=== PATIENT | female | born 2000 | race African-American/Black ===

== ENCOUNTER 2021-07-10 14:58 | Outpatient (CLI) | payer OTHER ==
[2021-07-10 16:04] LABS: BHCG - Serum Negative (NEGATIVE); Pregs Control Background? CLEAR/WHITE (CLR/WHITE); Pregs Control Bar Appear? YES (CONTROL BAR)
[2021-07-10 16:24] LABS: Hemoglobin 11.9 g/dL (12.0-15.5); Mean Corpuscular Hemoglobin 24.2 pg (27.0-33.0); Mean Platelet Volume 10.5 fl (7.4-10.4); Platelet Count 246 10x3/uL (150-450); RBC Distribution Width 14.6 % (11.5-14.5); Red Blood Cell (RBC) Count 4.92 10x6/uL (3.90-5.03); White Blood Cell (WBC) Count 5.3 10x3/uL (3.5-10.5)
[2021-07-11 11:56] LABS: SARS-CoV-2 PCR by NAA Not Detected (NotDetected)
== END 2021-07-10 14:59 | disposition home or self-care (01) ==
LOC: CSHLAB 14:58
PROVIDERS: ATTEND Obstetrics & Gynecology
DX: Z01.812 Encounter for preprocedural laboratory examination (principal); Z20.822 Contact with and (suspected) exposure to COVID-19
CPT/HCPCS: 84703; 85027; 86850; 86900; 86901; U0003; U0005

== ENCOUNTER 2021-07-15 07:15 | Day surgery (SDC) | payer OTHER ==
[2021-07-10 12:46] VITALS: BMI 32.0
[2021-07-10 16:04] LABS: BHCG - Serum Negative (NEGATIVE); Pregs Control Background? CLEAR/WHITE (CLR/WHITE); Pregs Control Bar Appear? YES (CONTROL BAR)
[2021-07-10 16:24] LABS: Hemoglobin 11.9 g/dL (12.0-15.5); Mean Corpuscular Hemoglobin 24.2 pg (27.0-33.0); Mean Platelet Volume 10.5 fl (7.4-10.4); Platelet Count 246 10x3/uL (150-450); RBC Distribution Width 14.6 % (11.5-14.5); Red Blood Cell (RBC) Count 4.92 10x6/uL (3.90-5.03); White Blood Cell (WBC) Count 5.3 10x3/uL (3.5-10.5)
[2021-07-11 11:56] LABS: SARS-CoV-2 PCR by NAA Not Detected (NotDetected)
[2021-07-15] MEDS ORDERED: CeleCOXIB 100 MG CAP ONE (08:16)
[2021-07-15] MEDS ORDERED: Gabapentin 300 MG CAP ONE (08:16)
[2021-07-15] MEDS ORDERED: Lidocaine 1% MPF 2 ML VIAL ONE (08:16)
[2021-07-15] MEDS ORDERED: Famotidine/PF 20 mg/2ml Vial ONE (08:16)
[2021-07-15] MEDS ORDERED: Rocuronium Bromide 10 MG/ML (10ML VIAL) ONE (09:40)
[2021-07-15] MEDS ORDERED: Lidocaine 1% PF 5 ML VIAL ONE (09:40)
[2021-07-15] MEDS ORDERED: Midazolam HCl 2 mg/2 ml Vial ONE (09:46)
[2021-07-15] MEDS ORDERED: EPINEPHrine 1 MG/ML AMP ONE (10:14)
[2021-07-15] MEDS ORDERED: Bupivacaine PF 0.5% 30 ML VIAL ONE (10:14)
[2021-07-15] MEDS ORDERED: ceFAZolin 2 GM/Dextrose 50 ML IVPB ONE (10:20)
[2021-07-15] MEDS ORDERED: PROPOFOL 20 ML ONE (10:36)
[2021-07-15] MEDS ORDERED: Fentanyl 100 MCG/2 ML VIAL ONE ×2 (10:37→12:11)
[2021-07-15] MEDS ORDERED: PHENYLEPHRINE-NS 100 MCG/ML 10 ML SYRINGE ONE (10:48)
[2021-07-15] MEDS ORDERED: Dexamethasone 4 mg/ml Vial ONE (10:53)
[2021-07-15] MEDS ORDERED: Ondansetron PF 4 MG/2 ML Vial ONE (10:53)
[2021-07-15] MEDS ORDERED: Glycopyrrolate 0.2 MG/ML 5 ML SYRINGE ONE (11:47)
== END 2021-07-15 13:35 | disposition home or self-care (01) ==
LOC: CSHSDC 07:15
PROVIDERS: ATTEND Obstetrics & Gynecology
PROC: 8E0W8CZ Robotic Assisted Procedure of Trunk Region, Via Natural or Artificial Opening Endoscopic (ICD-10-PCS; principal; 2021-07-15)
PROC: 0UB04ZZ Excision of Right Ovary, Percutaneous Endoscopic Approach (ICD-10-PCS; principal; 2021-07-15)
DX: D27.0 Benign neoplasm of right ovary (principal); N80.3 Endometriosis of pelvic peritoneum; K91.81 Other intraoperative complications of digestive system; S36.530A Laceration of ascending [right] colon, initial encounter; Z79.1 Long term (current) use of non-steroidal anti-inflammatories (NSAID); Z20.822 Contact with and (suspected) exposure to COVID-19; Y83.8 Other surgical procedures as the cause of abnormal reaction of the patient, or of later complication, without mention of misadventure at the time of the procedure
CPT/HCPCS: 36416; 84703; 85027; 86850; 86900; 86901; 88307; J0171; J0690; J1100; J2250; J2405; J2704; J3010; S0020; S0028; U0003; U0005

== ENCOUNTER 2021-11-02 02:49 | Emergency (ER) | payer MEDICAID, SELFPAY ==
[2021-11-02] MEDS ORDERED: Ondansetron ODT 4 MG TAB ONE (03:09)
[2021-11-02] MEDS ORDERED: Ondansetron PF 4 MG/2 ML Vial ONE (03:35)
== END 2021-11-02 04:28 | disposition home or self-care (01) ==
LOC: CSHERS 02:49
DX: R11.2 Nausea with vomiting, unspecified (principal)
CPT/HCPCS: 96361; 96374; J2405; Q0162

== ENCOUNTER 2022-08-12 11:30 | Inpatient (IN) | payer OTHER ==
[2022-08-12] MEDS ORDERED: hydrALAZINE 20 MG/ML VIAL SLOW IVP PRN ×2 (19:51→19:53)
[2022-08-12] MEDS ORDERED: HYDROcodone/Acetaminophen 5/325 mg Tablet PO PRN ×2 (19:53)
[2022-08-12] MEDS ORDERED: NS w/ Oxytocin 30 units 500 ML IV SCH ×3 (19:53)
[2022-08-12] MEDS ORDERED: Promethazine HCl 25 MG/ML VIAL IM PRN (19:53)
[2022-08-12] MEDS ORDERED: Ibuprofen 800 MG TAB PO PRN (19:53)
[2022-08-12] MEDS ORDERED: Ondansetron PF 4 MG/2 ML Vial IVP PRN (19:53)
[2022-08-12] MEDS ORDERED: Lidocaine 1% (PF) 30 ML VIAL SC PRN (19:53)
[2022-08-12] MEDS ORDERED: fentaNYL 50 mcg/mL 1 mL Vial SLOW IVP PRN (19:53)
[2022-08-12] MEDS ORDERED: Misoprostol 100 MCG TAB VAG SCH ×2 (19:53)
[2022-08-12 20:28] LABS: Hemoglobin 9.9 g/dL (12.0-15.5); Mean Corpuscular HGB CONC 32.5 g/dL (32.0-36.0); Mean Corpuscular Hemoglobin 24.4 pg (27.0-33.0); Mean Corpuscular Volume 75.3 fl (81.6-98.3); Mean Platelet Volume 11.5 fl (7.4-10.4); Platelet Count 154 10x3/uL (150-450); RBC Distribution Width 15.4 % (11.5-14.5); Red Blood Cell (RBC) Count 4.05 10x6/uL (3.90-5.03); White Blood Cell (WBC) Count 5.8 10x3/uL (3.5-10.5)
[2022-08-12 20:41] LABS: ALT (SGPT) 10 U/L (8-55); AST (SGOT) 15 U/L (5-34); Albumin 3.1 g/dL (3.5-5.0); Alkaline Phosphatase 208 U/L (40-110); Anion Gap 9 mmol/L (10-20); BUN (Urea Nitrogen) 4 mg/dL (7.0-18.7); Bilirubin, Total 0.2 mg/dL (0.2-1.2); Calc. Creatinine Clearance 0 mL/min (70-130); Calcium 8.6 mg/dL (7.8-10.44); Carbon Dioxide 23 mmol/L (22-29); Chloride 108 mmol/L (98-107); Estimated GFR 126; Globulin 2.7 g/dL (2.4-3.5); Glucose 80 mg/dL (70-105); Potassium 3.2 mmol/L (3.5-5.1); Protein, Total 5.8 g/dL (6.0-8.3); Sodium 137 mmol/L (136-145)
[2022-08-12 20:43] VITALS: BMI 38.4
[2022-08-12 21:00] LABS: Syphilis Antibody Nonreactive (Nonreactive); Syphilis Antibody Index 0.03 S/CO (<1.00 Non-Reactive)
[2022-08-12 21:09] LABS: HBSAg Index 0.16 S/CO (0-0.99); Hep B Surf Ag - L&D Non-Reactive S/CO (NonReactive)
[2022-08-12] MEDS: Misoprostol 100 MCG TAB VAG SCH (23:11)
[2022-08-12] MEDS ORDERED: hydrALAZINE 20 MG/ML VIAL ONE (23:44)
[2022-08-12] MEDS ORDERED: Magnesium Sulfate 20 gm/500 ml 20 GM/500 ML BAG ONE (23:44)
[2022-08-13] MEDS: Misoprostol 100 MCG TAB VAG SCH ×4 (02:23→19:35)
[2022-08-13] MEDS: Lactated Ringer's 1,000 ML IV SCH ×3 (05:06→20:00)
[2022-08-13] MEDS ORDERED: Potassium Chloride 20 MEQ TAB PO SCH (05:15)
[2022-08-13] MEDS ORDERED: Misoprostol 100 MCG TAB ONE (07:45)
[2022-08-13] MEDS ORDERED: Magnesium Sulfate 20 gm/500 ml 20 GM/500 ML BAG ONE ×2 (08:15→18:21)
[2022-08-13] MEDS ORDERED: fentaNYL/Ropivacaine Epidural 100 ML ONE (20:41)
[2022-08-13] MEDS ORDERED: ePHEDrine Sulfate 50 MG/10 ML VIAL SLOW IVP PRN (22:00)
[2022-08-13] MEDS ORDERED: diphenhydrAMINE 50 MG/ML VIAL IVP PRN (22:00)
[2022-08-13] MEDS ORDERED: Naloxone HCl 0.4 mg/ml Vial IVP PRN ×2 (22:00)
[2022-08-13] MEDS ORDERED: Communication Order-Pharmacy FS SCH (22:00)
[2022-08-13] MEDS ORDERED: Lactated Ringer's 500 ML IV PRN (22:00)
[2022-08-13] MEDS ORDERED: Promethazine HCl 25 MG/ML VIAL IM PRN (22:00)
[2022-08-13] MEDS ORDERED: Ondansetron PF 4 MG/2 ML Vial IVP PRN (22:00)
[2022-08-13] MEDS ORDERED: Moisturizing Cream (Eucerin) 113 GM JAR TOP PRN (22:00)
[2022-08-13] MEDS ORDERED: Acetaminophen 325 MG TAB PO PRN (22:00)
[2022-08-13] MEDS ORDERED: fentaNYL 2 mcg/Ropivacaine 0.2% Epidural 100 ML CADD EPIDURAL SCH (22:00)
[2022-08-14 04:19] LABS: Magnesium 6.2 mg/dL (1.6-2.6)
[2022-08-14] MEDS ORDERED: Magnesium Sulfate 20 gm/500 ml 20 GM/500 ML BAG ONE ×2 (04:31→15:06)
[2022-08-14] MEDS: Lactated Ringer's 1,000 ML IV SCH ×2 (04:50→18:31)
[2022-08-14] MEDS ORDERED: fentaNYL/Ropivacaine Epidural 100 ML ONE (04:57)
[2022-08-14] MEDS ORDERED: CEFAZOLIN 2 GM VIAL ONE (13:27)
[2022-08-14] MEDS ORDERED: Azithromycin 500 MG VIAL ONE (13:28)
[2022-08-14] MEDS ORDERED: Famotidine/PF 20 mg/2ml Vial ONE (13:28)
[2022-08-14] MEDS ORDERED: Bicitra 30 ML UDCUP PO PRN (13:31)
[2022-08-14] MEDS ORDERED: Famotidine/PF 20 mg/2ml Vial SLOW IVP PRN (13:31)
[2022-08-14] MEDS ORDERED: Misoprostol 200 MCG TAB ONE (13:33)
[2022-08-14] MEDS ORDERED: Carboprost 250 MCG/ML AMP ONE (13:33)
[2022-08-14] MEDS ORDERED: Tranexamic Acid 1,000 MG/10 ML VIAL ONE (13:34)
[2022-08-14] MEDS ORDERED: Dexmedetomidine 200 MCG/2 ML VIAL ONE (13:36)
[2022-08-14] MEDS ORDERED: Morphine PF 10 MG/10 ML VIAL ONE (13:40)
[2022-08-14] MEDS ORDERED: Oxytocin 10 UNITS/ML VIAL ONE ×2 (13:40→14:20)
[2022-08-14] MEDS ORDERED: Ketorolac Tromethamine 30 MG/ML VIAL ONE (13:40)
[2022-08-14] MEDS ORDERED: Metoclopramide HCl 10 MG/2 ML VIAL ONE (13:41)
[2022-08-14] MEDS ORDERED: Dexamethasone 4 mg/ml Vial ONE (13:41)
[2022-08-14] MEDS ORDERED: Ondansetron PF 4 MG/2 ML Vial ONE (13:41)
[2022-08-14] MEDS ORDERED: Lidocaine 2% MPF 10 ML AMP (For Epidural Use) ONE (13:42)
[2022-08-14] MEDS ORDERED: CEFAZOLIN 2 GM in Sodium Chloride 0.9% 100 ML IVPB SCH (13:45)
[2022-08-14] MEDS ORDERED: Azithromycin 500 MG in Sodium Chloride 0.9% 250 ML 250 ML IVPB SCH (13:45)
[2022-08-14] MEDS ORDERED: Fentanyl 100 MCG/2 ML VIAL SLOW IVP PRN (13:46)
[2022-08-14] MEDS ORDERED: Meperidine HCl/PF 25 MG/ML VIAL SLOW IVP PRN (13:46)
[2022-08-14] MEDS ORDERED: Promethazine HCl 25 MG/ML VIAL IM PRN (13:46)
[2022-08-14] MEDS ORDERED: Ondansetron HCl/PF 4 MG/2 ML Vial IVP PRN (13:46)
[2022-08-14] MEDS ORDERED: Ondansetron PF 4 MG/2 ML Vial IVP PRN ×2 (13:46→14:29)
[2022-08-14] MEDS ORDERED: Naloxone HCl 0.4 mg/ml Vial IVP PRN ×2 (13:46)
[2022-08-14] MEDS ORDERED: Naloxone HCl 0.4 mg/ml Vial IV PRN (13:46)
[2022-08-14] MEDS ORDERED: diphenhydrAMINE 50 MG/ML VIAL IVP PRN (13:46)
[2022-08-14] MEDS ORDERED: Promethazine HCl 25 MG SUPP PR PRN (13:46)
[2022-08-14] MEDS ORDERED: Moisturizing Cream (Eucerin) 113 GM JAR TOP PRN (13:46)
[2022-08-14] MEDS ORDERED: Communication Order-Pharmacy FS SCH (14:00)
[2022-08-14] MEDS ORDERED: hydrALAZINE 20 MG/ML VIAL SLOW IVP PRN (14:29)
[2022-08-14] MEDS ORDERED: Boostrix 0.5 ML (Tdap) VIAL (>/=7 yrs of age) IM ONE (14:29)
[2022-08-14] MEDS ORDERED: Simethicone Chewable 80 MG TAB PO PRN (14:29)
[2022-08-14] MEDS ORDERED: Lanolin Ointment 7 GM TUBE TOP PRN (14:29)
[2022-08-14] MEDS ORDERED: Bisacodyl 10 MG SUPP PR PRN (14:29)
[2022-08-14] MEDS: Misoprostol 100 MCG TAB VAG SCH ×2 (18:30→18:31)
[2022-08-14] MEDS: Ketorolac Tromethamine 30 MG/ML VIAL IVP PRN (20:31)
[2022-08-15] MEDS ORDERED: Magnesium Sulfate 20 gm/500 ml 20 GM/500 ML BAG ONE (01:11)
[2022-08-15] MEDS: Ketorolac Tromethamine 30 MG/ML VIAL IVP PRN ×3 (02:32→16:15)
[2022-08-15 03:05] LABS: Hemoglobin 9.7 g/dL (12.0-15.5); Mean Corpuscular Hemoglobin 24.9 pg (27.0-33.0); Mean Corpuscular Volume 75.4 fl (81.6-98.3); Mean Platelet Volume 11.2 fl (7.4-10.4); Platelet Count 160 10x3/uL (150-450); RBC Distribution Width 15.5 % (11.5-14.5); White Blood Cell (WBC) Count 17.7 10x3/uL (3.5-10.5)
[2022-08-15] MEDS: Magnesium Sulfate 20 gm/500 ml 20 GM/500 ML BAG ONE ×2 (11:14→14:11)
[2022-08-15] MEDS: Lactated Ringer's 1,000 ML IV SCH (14:09)
[2022-08-15] MEDS: Misoprostol 100 MCG TAB VAG SCH ×2 (14:09→14:10)
[2022-08-15] MEDS: Docusate 100 MG CAP PO SCH ×2 (14:10→21:58)
[2022-08-15] MEDS: Ferrous Sulfate 325 MG TAB PO SCH (14:10)
[2022-08-15] MEDS: Prenatal Vitamin 1 TAB PO SCH (14:11)
[2022-08-15] MEDS: Potassium Chloride 20 MEQ TAB PO SCH ×2 (14:11→14:42)
[2022-08-15] MEDS ORDERED: Prenatal Vitamin 1 TAB PO SCH (14:16)
[2022-08-15] MEDS ORDERED: Simethicone Chewable 80 MG TAB PO PRN (14:16)
[2022-08-15] MEDS ORDERED: Ferrous Sulfate 325 MG TAB PO SCH (14:16)
[2022-08-15] MEDS ORDERED: Lanolin Ointment 7 GM TUBE TOP PRN (14:16)
[2022-08-15] MEDS ORDERED: Ondansetron PF 4 MG/2 ML Vial IVP PRN (14:16)
[2022-08-15] MEDS ORDERED: HYDROcodone/Acetaminophen 5/325 mg Tablet PO PRN ×2 (14:16)
[2022-08-15] MEDS ORDERED: Docusate 100 MG CAP PO SCH (14:16)
[2022-08-15] MEDS ORDERED: hydrALAZINE 20 MG/ML VIAL SLOW IVP PRN (14:16)
[2022-08-15] MEDS ORDERED: Boostrix 0.5 ML (Tdap) VIAL (>/=7 yrs of age) IM ONE (14:16)
[2022-08-15] MEDS ORDERED: diphenhydrAMINE 25 MG CAP PO PRN (14:16)
[2022-08-15] MEDS ORDERED: Ibuprofen 800 MG TAB PO SCH (14:16)
[2022-08-15] MEDS ORDERED: Bisacodyl 10 MG SUPP PR PRN (14:16)
[2022-08-15] MEDS: Ibuprofen 800 MG TAB PO SCH (21:58)
[2022-08-16] MEDS: Ferrous Sulfate 325 MG TAB PO SCH ×3 (02:24→21:10)
[2022-08-16] MEDS: HYDROcodone/Acetaminophen 5/325 mg Tablet PO PRN ×4 (02:43→21:11)
[2022-08-16 03:05] LABS: Hemoglobin 8.4 g/dL (12.0-15.5); Mean Corpuscular HGB CONC 32.8 g/dL (32.0-36.0); Mean Corpuscular Volume 76.2 fl (81.6-98.3); Mean Platelet Volume 11.4 fl (7.4-10.4); Platelet Count 158 10x3/uL (150-450); RBC Distribution Width 15.7 % (11.5-14.5); Red Blood Cell (RBC) Count 3.36 10x6/uL (3.90-5.03); White Blood Cell (WBC) Count 9.9 10x3/uL (3.5-10.5)
[2022-08-16 03:13] LABS: Anion Gap 9 mmol/L (10-20); BUN (Urea Nitrogen) 8 mg/dL (7.0-18.7); Calc. Creatinine Clearance 217 mL/min (70-130); Calcium 7.8 mg/dL (7.8-10.44); Carbon Dioxide 25 mmol/L (22-29); Chloride 108 mmol/L (98-107); Estimated GFR 128; Glucose 81 mg/dL (70-105); Potassium 3.4 mmol/L (3.5-5.1); Sodium 139 mmol/L (136-145)
[2022-08-16] MEDS: Ibuprofen 800 MG TAB PO SCH ×3 (05:36→21:10)
[2022-08-16] MEDS: Labetalol HCl 200 MG TAB PO SCH ×2 (07:53→21:11)
[2022-08-16] MEDS: Docusate 100 MG CAP PO SCH ×2 (07:53→21:10)
[2022-08-16] MEDS: Prenatal Vitamin 1 TAB PO SCH (07:53)
[2022-08-16] MEDS ORDERED: hydrALAZINE 20 MG/ML VIAL SLOW IVP SCH (08:15)
[2022-08-16] MEDS ORDERED: NIFEdipine XL 30 MG TAB PO SCH (12:15)
[2022-08-16] MEDS ORDERED: Potassium Chloride 20 MEQ TAB PO SCH (14:30)
[2022-08-17 04:09] LABS: Anion Gap 13 mmol/L (10-20); BUN (Urea Nitrogen) 6 mg/dL (7.0-18.7); Calc. Creatinine Clearance 221 mL/min (70-130); Calcium 8.7 mg/dL (7.8-10.44); Carbon Dioxide 23 mmol/L (22-29); Chloride 105 mmol/L (98-107); Estimated GFR 129; Glucose 83 mg/dL (70-105); Potassium 3.5 mmol/L (3.5-5.1); Sodium 137 mmol/L (136-145)
[2022-08-17] MEDS: HYDROcodone/Acetaminophen 5/325 mg Tablet PO PRN (04:16)
[2022-08-17] MEDS: Ibuprofen 800 MG TAB PO SCH (04:18)
[2022-08-17 07:49] VITALS: BP 144/85; TEMP 98.2
[2022-08-17] MEDS: Docusate 100 MG CAP PO SCH (08:45)
[2022-08-17] MEDS: Ferrous Sulfate 325 MG TAB PO SCH (08:45)
[2022-08-17] MEDS: Prenatal Vitamin 1 TAB PO SCH (08:46)
[2022-08-17] MEDS ORDERED: NIFEdipine XL 30 MG TAB PO SCH (09:00)
== END 2022-08-17 10:30 | disposition home or self-care (01) | DRG 786 ==
LOC: CSHLD 19:14 → CSHPP 08-15 16:37
PROVIDERS: ADMIT Obstetrics & Gynecology; ATTEND Obstetrics & Gynecology
PROC: 3E0P7VZ Introduction of Hormone into Female Reproductive, Via Natural or Artificial Opening (ICD-10-PCS; 2022-08-12)
PROC: 0U7C7ZZ Dilation of Cervix, Via Natural or Artificial Opening (ICD-10-PCS; 2022-08-13)
PROC: 10D00Z1 Extraction of Products of Conception, Low, Open Approach (ICD-10-PCS; principal; 2022-08-14)
PROC: 10907ZC Drainage of Amniotic Fluid, Therapeutic from Products of Conception, Via Natural or Artificial Opening (ICD-10-PCS; 2022-08-14)
DX: O36.5930 Maternal care for other known or suspected poor fetal growth, third trimester, not applicable or unspecified (principal); O41.1230 Chorioamnionitis, third trimester, not applicable or unspecified; O99.324 Drug use complicating childbirth; Z3A.37 37 weeks gestation of pregnancy; Z37.0 Single live birth; Z79.899 Other long term (current) drug therapy; F12.90 Cannabis use, unspecified, uncomplicated; O14.14 Severe pre-eclampsia complicating childbirth; O32.4XX0 Maternal care for high head at term, not applicable or unspecified; O90.81 Anemia of the puerperium; D50.8 Other iron deficiency anemias
CPT/HCPCS: 36415; 51702; 80048; 80053; 83735; 85027; 86780; 86850; 86900; 86901; 87340; 88307; J0360; J0456; J1100; J1200; J1885; J2274; J2405; J2590; J2765; J3475; J7050; J7120; S0028